=== PATIENT | male | born 1960 | race Caucasian/White ===

== ENCOUNTER 2018-12-20 14:14 | Emergency (ER) | payer SELFPAY ==
[~2018-12-20] VITALS: Ht 177.8 cm; Wt 73.0 kg
[2018-12-20] MEDS ORDERED: SODIUM CHLORIDE 0.9% 1,000 ML IV ONE (18:41)
[2018-12-20 19:12] LABS: HEMATOCRIT. 42.3 % (42.0-52.0); HEMOGLOBIN. 14.9 g/dL (14.0-18.0); MEAN CORPUSCULAR HEMOGLOBIN 34.4 pg (28.0-32.0); MEAN PLATELET VOLUME 7.8 fl (7.4-10.4); PLATELET 166 x1000/uL (130-400); RED BLOOD CELL COUNT 4.32 mill/uL (4.7-6.1); RED CELL DISTRIBUTION WIDTH 13.4 % (11.6-14.6)
[2018-12-20 19:14] LABS: CHLORIDE 107 mEq/L (98-107)
[2018-12-20 19:19] LABS: ETHANOL BLOOD < 10 mg/dL
[2018-12-20 19:42] LABS: PLATELET ESTIMATE NORMAL
[2018-12-20] MEDS ORDERED: LORAZEPAM 1MG TABLET PO ONE (19:45)
[2018-12-20 20:08] LABS: CLARITY URINE CLEAR (CLEAR); COLOR URINE YELLOW (YELLOW); KETONES URINE NEGATIVE (NEGATIVE); LEUKOCYTE ESTERASE URINE NEGATIVE (NEGATIVE); NITRITE URINE NEGATIVE (NEGATIVE); OCCULT BLOOD URINE NEGATIVE (NEGATIVE); PH URINE 5.5 (4.5-8.0); PROTEIN URINE NEGATIVE (NEGATIVE); SPECIFIC GRAVITY URINE 1.007 (1.005-1.030); UROBILINOGEN URINE 0.2 E.U./dL (0.2-1.0)
[2018-12-20 20:24] LABS: *AMPHETAMINES SCREEN URINE NEGATIVE (NEGATIVE); *BARBITURATES SCREEN URINE NEGATIVE (NEGATIVE); *BENZODIAZEPINES SCREEN URINE PRESUMTIVE POSITIVE (NEGATIVE); *COCAINE SCREEN URINE NEGATIVE (NEGATIVE); CANNABINOID URINE SCREEN NEGATIVE (NEGATIVE); OPIATES URINE SCREEN NEGATIVE (NEGATIVE); PHENCYCLIDINE URINE SCREEN NEGATIVE (NEGATIVE)
[2018-12-20 20:25] LABS: METHADONE URINE SCREEN NEGATIVE (NEGATIVE)
[2018-12-20 23:35] VITALS: BP 119/67
== END 2018-12-20 23:39 | disposition home or self-care (01) ==
LOC: ER 14:14 → CANBEDREQ 12-21 00:50
DX: K85.90 Acute pancreatitis without necrosis or infection, unspecified (principal); R06.02 Shortness of breath; R42 Dizziness and giddiness; R19.7 Diarrhea, unspecified; F17.200 Nicotine dependence, unspecified, uncomplicated; F10.20 Alcohol dependence, uncomplicated; Y90.0 Blood alcohol level of less than 20 mg/100 ml
CPT/HCPCS: 36415; 71045; 80053; 80305; 80320; 81003; 83690; 83880; 84484; 85025; 86850; 86900; 86901; 93005; 96360; 99284; J7030; G0480

== ENCOUNTER 2019-09-10 10:19 | Emergency (ER) | payer SELFPAY ==
[~2019-09-10] VITALS: Ht 175.3 cm; Wt 72.0 kg
[2019-09-10] MEDS ORDERED: SODIUM CHLORIDE 0.9% 1,000 ML IV ONE (11:15)
[2019-09-10] MEDS ORDERED: LORAZEPAM 2MG/ML CPJ IV STA (11:15)
[2019-09-10] MEDS ORDERED: ONDANSETRON HCL 4MG/2ML INJ IV STA (11:15)
[2019-09-10 12:29] LABS: BASOPHILS % 0.3 % (0.0-2.0); EOSINOPHILS % 0.3 % (0.0-5.0); HEMOGLOBIN. 17.6 g/dL (14.0-18.0); LYMPHOCYTES % 8.8 % (20.0-50.0); MEAN CORPUSCULAR HEMOGLOBIN 32.7 pg (28.0-32.0); MEAN CORPUSCULAR VOLUME 95.1 fL (80.0-94.0); MEAN PLATELET VOLUME 8.1 fl (7.4-10.4); NEUTROPHILS % 85.6 % (40.0-76.0); PLATELET 230 x1000/uL (130-400); RED BLOOD CELL COUNT 5.37 mill/uL (4.7-6.1); RED CELL DISTRIBUTION WIDTH 13.4 % (11.6-14.6)
[2019-09-10 12:37] LABS: CHLORIDE 99 mEq/L (98-107)
[2019-09-10 12:45] LABS: ETHANOL BLOOD 117 mg/dL
[2019-09-10 16:00] LABS: CLARITY URINE CLEAR (CLEAR); COLOR URINE YELLOW (YELLOW); KETONES URINE 1+ (NEGATIVE); LEUKOCYTE ESTERASE URINE NEGATIVE (NEGATIVE); NITRITE URINE NEGATIVE (NEGATIVE); OCCULT BLOOD URINE NEGATIVE (NEGATIVE); PH URINE 6.5 (4.5-8.0); PROTEIN URINE 1+ (NEGATIVE); SPECIFIC GRAVITY URINE 1.026 (1.005-1.030)
[2019-09-10 16:36] LABS: *AMPHETAMINES SCREEN URINE NEGATIVE (NEGATIVE); *BARBITURATES SCREEN URINE NEGATIVE (NEGATIVE); *BENZODIAZEPINES SCREEN URINE NEGATIVE (NEGATIVE); *COCAINE SCREEN URINE NEGATIVE (NEGATIVE)
[2019-09-10 16:37] LABS: CANNABINOID URINE SCREEN NEGATIVE (NEGATIVE); METHADONE URINE SCREEN NEGATIVE (NEGATIVE); OPIATES URINE SCREEN NEGATIVE (NEGATIVE); PHENCYCLIDINE URINE SCREEN NEGATIVE (NEGATIVE)
[2019-09-10 17:13] VITALS: BP 148/69
== END 2019-09-10 17:13 | disposition home or self-care (01) ==
LOC: ER 10:19
DX: F10.20 Alcohol dependence, uncomplicated (principal); Y90.5 Blood alcohol level of 100-119 mg/100 ml
CPT/HCPCS: 36415; 80053; 80305; 80320; 81003; 82962; 85025; 96374; 96375; 99283; J2060; J2405; J7030; G0480